=== PATIENT | female | born 1950 | race Two or more races ===

== ENCOUNTER 2023-03-28 07:26 | Outpatient (CLI) | payer OTHER | END 2023-03-28 07:31 | disposition home or self-care (01) | LOC: NUCLEAR 07:26 | PROVIDERS: ATTEND Internal Medicine | DX: I20.9 Angina pectoris, unspecified (principal) | CPT/HCPCS: 78452; 93017; A9500; J0153 ==

== ENCOUNTER 2023-04-28 07:35 | Outpatient (CLI) | payer OTHER | END 2023-04-28 07:36 | disposition home or self-care (01) | LOC: NUCLEAR 07:35 | PROVIDERS: ATTEND Internal Medicine | DX: I73.9 Peripheral vascular disease, unspecified (principal); I11.9 Hypertensive heart disease without heart failure; E78.2 Mixed hyperlipidemia ==